=== PATIENT | female | born 1980 | race Caucasian/White ===

== ENCOUNTER 2022-01-18 11:05 | Emergency (ER) | payer OTHER ==
[2022-01-18 11:41] LABS: HEMOGLOBIN 14.3 gm/dl (12.3-15.3); RED BLOOD COUNT 4.78 M/UL (4.00-5.10); WHITE BLOOD COUNT 7.3 K/UL (4.5-11.0)
[2022-01-18 12:38] LABS: BUN/CREATININE RATIO 21 (0-10)
== END 2022-01-18 15:50 | disposition home or self-care (01) ==
LOC: ER1 11:05
DX: R07.89 Other chest pain (principal); R00.2 Palpitations
CPT/HCPCS: 71045; 80053; 82550; 82553; 84484; 85025; 93005; 99285